=== PATIENT | female | born 1990 | race Caucasian/White ===

== ENCOUNTER → 2022-08-03 | Outpatient (CLI) | payer OTHER ==
--- NOTE | 2022-08-03 13:16 | Diagnostic Imaging Report ---
INDICATION: survey. TECHNIQUE: Multiple Real-time grayscale images were obtained over the gravid uterus. COMPARISON: None FINDINGS: There is a single live fetus in a variable presentation. The heart rate was recorded at 144 BPM. The placenta is posterior and somewhat low lying in position with the tip approximately 2.5 cm from the internal cervical os. The amniotic fluid index is 13.3 cm. The cervical length is 6.1 cm. The kidneys, bladder, and stomach are unremarkable. There is a four-chamber heart. There is a three-vessel cord with normal insertion. The spine is unremarkable. The brain is unremarkable although there were suboptimal views of the cerebellum and cisterna magna. Biometrical measurements are as follows: Biparietal 4.05 cm, age 18 weeks 3 days. Head circumference 14.85 cm, age 18 weeks 0 days. Abdominal circumference 12.03 cm, age 17 weeks 6 days. Femur length 2.63 cm, age 18 weeks 0 days. Sonographic estimate age: 18 weeks 1 days. Sonographic estimated date of delivery: 01/03/2023. Estimated Weight: 214 gm (+/- 31 gm). LMP percentile: <2%. heart rate: 144 beats per minute. number: 1 of 1. IMPRESSION: Single live IUP measuring 18 weeks 1 day gestational age with an estimated date of confinement sonographically of 01/03/2023. This is approximately 2 weeks discordant when compared with the gestational age by LMP. No definite complicating features are identified; however, the brain was somewhat limited in evaluation, particularly the posterior fossa. Dictated by: Dictated on workstation # [id number]
== END ==
LOC: RAD 09:50
PROVIDERS: ATTEND Nurse Practitioner Women's Health
DX: Z34.02 Encounter for supervision of normal first pregnancy, second trimester (principal); Z3A.18 18 weeks gestation of pregnancy
CPT/HCPCS: 76805

== ENCOUNTER → 2022-12-21 | Outpatient (CLI) | payer OTHER ==
[~2022-12-21] VITALS: Ht 157.5 cm; Wt 92.9 kg
[~2022-12-21] MED LIST: CALC500T7 PO; HYDR-3781 PO; PNV-9 PO; PYRI25TA3 PO; SERT-413 PO
== END | disposition home or self-care (01) ==
LOC: PREOP 05:38
PROVIDERS: ATTEND Obstetrics & Gynecology
DX: Z01.818 Encounter for other preprocedural examination (principal)

== ENCOUNTER 2022-12-28 05:40 | Inpatient (IN) | payer OTHER ==
[2022-12-28] VITALS (9 sets, daily range): BP systolic 102–132; BP diastolic 56–80
[~2022-12-28] VITALS: Ht 157.5 cm; Wt 91.8 kg
--- OUTSIDE RECORDS SUMMARY | 2022-12-28 05:43 | XMS REPORT ---
Author Author [facility] ter [facility] ter [facility] Address Unknown Phone Unavailable Care Team Providers Care Manager Furniture Name Role Phone JAMAAL ESTEBAN Unavailable PROBLEMS Type Condition ICD9-CM Code [id number] Code Onset Dates Condition Status W/U Status Risk SNOMED Code Notes Problem Missed period N92.6 confirmed 299274 00 Problem Attention deficit disorder (ADD) without hyperactivity F98.8 confirmed 32275746 Problem Anxiety F41.9 confirmed 56006772 Problem Third trimester Z34.93 confirmed 47850318 Problem Screening for thyroid disorder Z13.29 confirmed 145991003 Problem Insomnia due to medical condition G47.01 confirmed [id number] 9105 Problem Depression with anxiety F41.8 confirmed 858533042 Problem Generalized anxiety disorder F41.1 confirmed 14091461 Problem Episode of heavy vaginal bleeding N93.9 confirmed 316637801 Problem BMI 35.0-35.9,jose c lt Z68.35 confirmed [id number] ALLERGIES No Known Allergies ENCOUNTERS from 1989 to 2022-12-05 Encounter Location Date Provider Diagnosis [facility] [address] [id number] [place] [address] 11 Dec, 2020 JAMAAL ESTEBAN Depression with anxi ety F41.8 IMMUNIZATIONS Vaccine Route Administration Date Status PRIVATE FLU 22-23 (FLULAVAL) AGE 6MO AND UP Unknown Dec 09, 2021 Refused COVID-19 Pfizer (history) Unknown Nov 03, 2020 Ad ministered COVID-19 Pfizer (history) Unknown Oct 08, 2020 Ad ministered SOCIAL HISTORY Sex Assigned At : Social History Observation Description Sex Assigned At Unknown Alcohol Screen (Audit-C) Question Answer Notes Did you have a drink containing alcohol in the p ast year? No Points 0 Interpretation Negative PHQ2 Question Answer Notes In the last 2 weeks, how oft en have you had little interest or pleasure in doing things? Not at all In the last 2 weeks, how oft en have you been feeling down, depressed, or hopeless? Not at all Total PHQ2 Score 0 REASON FOR REFERRAL No Information VITAL SIGNS Height 62 in Dec, Height-cm 157.48 cm Dec, Weight 143 lbs Dec, Weight-kg 64.86 kg Dec, Temperature 96.9 degrees Fahrenheit Dec, Heart Rate 70 bpm Dec, Respiratory Rate 18 bpm Dec, Oximetry 98 % Dec, BMI 26.15 kg/m2 Dec, Blood pressure systolic 116 mmHg Dec, Blood pressure diastolic 78 mmHg Dec, MEDICATIONS Medication SIG (Take, Route, Frequency, Duration) Notes Start Date End Date Status hydrOXYzine Pamoate 25 MG TAKE ONE TO TWO CAPSULES Orally twice daily for 30 days Active Sertraline HCl 50 MG 1 tablet Orally Onc e a day for 30 days Oct, Active Escitalopram Oxalate 20 MG 1 tablet Orally Once a day for 30 days Not-Taking busPIRone HCl 15 MG 1 tablet Orally Twic e a day for 30 days Not-Taking Active Cefdinir 300 MG 1 capsule Orally 2 times a day for 10 days Jan, Not-Taking REASON FOR VISIT Anxiety-would like to see what else there is, states current meds are not helping -[facility] MEDICAL (GENERAL) HISTORY Type Description Date Medical History Anxiety Surgical History Bladder repair, exploratory for spine and pelvis 2013 Surgical History GB 2014 Hospitalization History [facility] 2013 MENTAL STATUS No Information ASSESSMENTS Encounter Date Diagnosis Assessment Notes Treatment Notes Treatment Clinical Notes Dec, Depression with anxiety (ICD-10 - F41.8) Martha was very upset today with all of the changes going on. We are goign to move from bupropion which can be a little stimulating for someone with anxiety to lexapro which is good for both anxiety and depression and does not have the activation that the wellbutrin does. I suspect that some of glenna "ADD" symptoms she is having are attributed to her anxiety. We will also add Remeron to help with sleep at night and increase her appetite a little. Discussed that we can see some weight gain with the remeron, but that would be the first one to take off if we do see that. Right now, goal is to stabilize her mood. SHe is agreeable. She does have therapy arranged. I will plan to see her in 3-4 weeks, sooner if her anxiety worsens or is not relieved by the regimen we prescribed today. Dec, Other 30 minutes spen t in patient's care on date of service. PLAN OF TREATMENT Medication Medication Name Sig Start Date Stop Date Sertraline HCl 50 MG 1 tablet Orally Onc e a day for 30 days Oct, hydrOXYzine Pamoate 25 MG TAKE ONE TO TW O CAPSULES Orally twice daily for 30 days Treatment Notes Assessment Notes Clinical Notes Depression with anxiety Martha was ve ry upset today with all of the changes going on. We are goign to move from bupropion which can be a little stimulating for someone with anxiety to lexapro which is good for both anxiety and depression and does not have the activation that the wellbutrin does. I suspect that some of glenna "ADD" symptoms she is having are attributed to her anxiety. We will also add Remeron to help with sleep at night and increase her appetite a little. Discussed that we can see some weight gain with the remeron, but that would be the first one to take off if we do see that. Right now, goal is to stabilize her mood. SHe is agreeable. She does have therapy arranged. I will plan to see her in 3-4 weeks, sooner if her anxiety worsens or is not relieved by the regimen we prescribed today. Next Appt Details 4 Weeks Reason:axniety/depre ssion Follow Up:4 Weeksaxniety/depression Insurance Providers Payer Name Payer Address Payer Phone Insured Name Patient Relationship to Insured Coverage Start Date Coverage End Date Subscriber Number Group Number [facility] [address] [address] [facility] [id number] Yanna Duff A Self - patient is the insured [id number]
--- OUTSIDE RECORDS SUMMARY | 2022-12-28 05:43 | XMS REPORT ---
Author Author [facility] ter [facility] ter [facility] Address Unknown Phone Unavailable Care Team Providers Care Metrology Manager Name Role Phone MARIA DE JESUS Basurto Unavailable [phone] PROBLEMS Type Condition ICD9-CM Code [id number] Code Onset Dates Condition Status W/U Status Risk SNOMED Code Notes Problem Missed period N92.6 confirmed 179218 00 Problem Screening for thyroid disorder Z13.29 confirmed 843085210 Problem Episode of heavy vaginal bleeding N93.9 confirmed 485404365 Problem BMI 35.0-35.9,jose c lt Z68.35 confirmed 745305585 Problem Attention deficit disorder (ADD) without hyperactivity F98.8 confirmed 78507646 Problem Anxiety F41.9 confirmed 33216837 Problem Depression with anxiety F41.8 confirmed 666788633 Problem Generalized anxiety disorder F41.1 confirmed [id number] ALLERGIES No Known Allergies ENCOUNTERS from 1989 to 2022-08-01 Encounter Location Date Provider Diagnosis [facility] [address] [id number] [place] [address] Aug, MARIA DE JESUS Basurto Low libido R68.82 ; Attention deficit disorder (ADD) without hyperactivity F98.8 and Screening for thyroid disorder Z13.29 IMMUNIZATIONS Vaccine Route Administration Date Status PRIVATE [...] No Information VITAL SIGNS Height 62 in Aug, Weight 157 lbs Aug, Weight-kg 71.21 kg Aug, Temperature 98.0 degrees Fahrenheit Aug, Heart Rate 84 bpm Aug, Respiratory Rate 20 bpm Aug, Oximetry 99 % Aug, BMI 28.71 kg/m2 Aug, Blood pressure systolic 100 mmHg Aug, Blood pressure diastolic 70 mmHg Aug, MEDICATIONS Medication SIG (Take, Route, Frequency, Duration) Notes Start Date End Date Status Escitalopram Oxalate 20 MG 1 tablet Oral ly Once a day for 30 days Active busPIRone HCl 15 MG 1 tablet Orally Twic e a day for 30 days Active hydrOXYzine Pamoate 25 MG TAKE ONE TO TW O CAPSULES BY MOUTH EVERY 6 HOURS NEEDED Orally every 6 hours as needed for 7 days Active Cefdinir 300 MG 1 capsule Orally 2 t imes a day for 10 days Jan, Active REASON FOR VISIT ADD f/u, PT states no concerns. lbualle rt r MEDICAL (GENERAL) HISTORY Type Description Date Medical History Anxiety Surgical History Bladder repair, exploratory for spine and pelvis 2012 Surgical History GB 2014 Hospitalization History [facility] 2012 MENTAL STATUS No Information ASSESSMENTS Encounter Date Diagnosis Assessment Notes Treatment Notes Treatment Clinical Notes Aug, Low libido (ICD-10 - R68.82) Will look into Addyi after labs if appropriate, Decreased Female Libido: Care Instructions material was published Aug, Attention deficit disorder (ADD) without hyperactivity (ICD-10 - F98.8) We discussed the risks, benefits, and alternatives of the medication Will increase to 450mg daily and see how she does. Instructed patient to take medication regularly every day. If at any time you experience any suicidal or homicidal ideation, please seek urgent evaluation with us or at the nearest ER Patient voices understanding and agrees with the plan. All questions answered. Aug, Screening for thyroid disorder (ICD-10 - Z13.29) PLAN OF TREATMENT Medication Medication Name Sig Start Date Stop Date Cefdinir 300 MG 1 capsule Orally 2 times a day for 10 days Jan, Treatment Notes Assessment Notes Clinical Notes Low libido Will look into Addyi after labs if appropriate, Decreased Female Libido: Care Instructions material was published Attention deficit disorder ( ADD) without hyperactivity We discussed the risks, benefits, and alternatives of the medication Will increase to 450mg daily and see how she does. Instructed patient to take medication regularly every day. If at any time you experience any suicidal or homicidal ideation, please seek urgent evaluation with us or at the nearest ER Patient voices understanding and agrees with the plan. All questions answered. Next Appt Details 2 Months Reason:anxiety f/u Follow Up:2 Monthsanxiety f/u Insurance Providers Payer Name Payer Address Payer Phone Insured Name Patient Relationship to Insured Coverage Start Date Coverage End Date Subscriber Number Group Number [facility] [address] [address] [facility] [id number] Yanna Duff A Self - patient is the insured [id number]
--- OUTSIDE RECORDS SUMMARY | 2022-12-28 05:43 | XMS REPORT ---
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.8 confirmed 04284439 Problem Anxiety F41.9 confirmed 19727774 Problem Third trimester Z34.93 confirmed 99808624 Problem Screening for thyroid disorder Z13.29 confirmed 768298468 Problem Insomnia due to medical condition G47.01 confirmed 1765431755 9105 Problem Depression with anxiety F41.8 confirmed 151594061 Problem Generalized anxiety disorder F41.1 confirmed 95073231 Problem Episode of heavy vaginal bleeding N93.9 confirmed 306700983 Problem BMI 35.0-35.9,jose c lt Z68.35 confirmed 133534317 ALLERGIES No Known Allergies ENCOUNTERS from 1989 to 2022-12-04 Encounter Location Date Provider Diagnosis [facility] [place] [address] [id number] [place] [address] 08 Dec, 2020 KE TRIPPTrell Anxiety F41.9 IMMUNIZATIONS Vaccine Route Administration Date Status COVID-19 Pfizer (history) Unknown Oct 08, 2020 Ad ministered COVID-19 Pfizer (history) Unknown Nov 03, 2020 Ad ministered PRIVATE FLU 22-23 (FLULAVAL) AGE 6MO AND UP Unknown Dec 09, 2021 Refused SOCIAL HISTORY Sex Assigned At : Social [...] Score 0 REASON FOR REFERRAL No Information MEDICATIONS Medication SIG (Take, Route, Frequency, Duration) [...] 10 days Jan, Not-Taking REASON FOR VISIT Refill request MEDICAL (GENERAL) HISTORY Type Description Date Medical History Anxiety Surgical History Bladder repair, exploratory for spine and pelvis 2013 Surgical History GB 2014 Hospitalization History [facility] 2013 MENTAL STATUS No Information ASSESSMENTS Encounter Date Diagnosis Assessment Notes Treatment Notes Treatment Clinical Notes Dec, Anxiety (ICD-10 - F41.9) PLAN OF TREATMENT Medication Medication Name Sig Start Date Stop Date Sertraline HCl 50 MG 1 tablet Orally Onc e a day for 30 days Oct, hydrOXYzine Pamoate 25 MG TAKE ONE TO TW O CAPSULES Orally twice daily for 30 days Insurance Providers Payer Name Payer Address Payer Phone Insured Name Patient Relationship to Insured Coverage Start Date Coverage End Date Subscriber Number Group Number [facility] [address] [address] [facility] [id number] Yanna Duff A Self - patient is the insured [id number]
--- OUTSIDE RECORDS SUMMARY | 2022-12-28 05:43 | XMS REPORT ---
Author Author [facility] ter [facility] Address Unknown Phone Unavailable Care Team Providers Care Clay Dry Press Mixer Operator Name Role Phone MARIA DE JESUS Basurto Unavailable PROBLEMS Type Condition ICD9-CM Code [id number] Code Onset Dates Condition Status W/U Status Risk SNOMED Code Notes Problem Missed period N92.6 confirmed 389751 00 Problem Screening for thyroid disorder Z13.29 confirmed 332527611 Problem Episode of heavy vaginal bleeding N93.9 confirmed 235877184 Problem BMI 35.0-35.9,jose c lt Z68.35 confirmed 930510791 Problem Attention deficit disorder (ADD) without hyperactivity F98.8 confirmed 49717873 Problem Anxiety F41.9 confirmed 37093228 Problem Depression with anxiety F41.8 confirmed 011730813 Problem Generalized anxiety disorder F41.1 confirmed 96229074 ALLERGIES No Known Allergies ENCOUNTERS from 1989 to 2022-10-01 Encounter Location Date Provider Diagnosis [facility] [address] [id number] [place] [address] Oct, MARIA DE JESUS Basurto Anxiety F41.9 IMMUNIZATIONS Vaccine Route Administration Date [...] No Information VITAL SIGNS Height 62 in Oct, Weight 157.7 lbs Oct, Weight-kg 71.53 kg Oct, Temperature 97.3 degrees Fahrenheit Oct, Heart Rate 101 bpm Oct, Respiratory Rate 18 bpm Oct, Oximetry 99 % Oct, BMI 28.84 kg/m2 Oct, Blood pressure systolic 128 mmHg Oct, Blood pressure diastolic 74 mmHg Oct, MEDICATIONS Medication SIG (Take, Route, Frequency, Duration) [...] 10 days Jan, Active REASON FOR VISIT Anxiety, Pt states she feels like she needs another mediation or add something to it. Pts she is OCD. No depression just anxiety. lbualle rt r MEDICAL (GENERAL) HISTORY Type Description Date Medical History Anxiety Surgical History Bladder repair, exploratory for spine and pelvis 2012 Surgical History GB 2014 Hospitalization History [facility] 2012 MENTAL STATUS No Information ASSESSMENTS Encounter Date Diagnosis Assessment Notes Treatment Notes Treatment Clinical Notes Oct, Anxiety (ICD-10 - F41.9) She is doing well on the wellbutrin and has seen benefit from the medication. We will trial hydoxyzine to see if this will help her with her anxiety more. Discussed possible side effect of drowsiness with the medication and to know how it effects her before driving. Recommend taking it in the evening at home the first time. If this doesn't help her anxiety then we will try adding buspar and see if this will benefit her anxiety. I do recommend her seeing psych for an evaluation and she is agreeable to this. Says she will call and schedule when she gets her calender. , Anxiety Disorder: Care Instructions material was published Oct, Other hydroxyzine oliva flores was published, Obsessive-Compulsive Disorder: Care Instructions material was published PLAN OF TREATMENT Medication Medication Name Sig Start Date Stop Date Cefdinir 300 MG 1 capsule Orally 2 times a day for 10 days Jan, Treatment Notes Assessment Notes Clinical Notes Anxiety She is doing well on the wellbutrin and has seen benefit from the medication. We will trial hydoxyzine to see if this will help her with her anxiety more. Discussed possible side effect of drowsiness with the medication and to know how it effects her before driving. Recommend taking it in the evening at home the first time. If this doesn't help her anxiety then we will try adding buspar and see if this will benefit her anxiety. I do recommend her seeing psych for an evaluation and she is agreeable to this. Says she will call and schedule when she gets her calender. , Anxiety Disorder: Care Instructions material was published Next Appt Details 4-6 weeks Reason:anxiety f/u Follow Up:4-6 weeksanxiety f/u Insurance Providers Payer Name Payer Address Payer Phone Insured Name Patient Relationship to Insured Coverage Start Date Coverage End Date Subscriber Number Group Number [facility] [address] [address] [facility] [id number] Yanna Duff A Self - patient is the insured [id number]
[2022-12-28] MEDS ORDERED: ceFAZolin INJECTION 2,000 MG in NS (IVPB) 50 ML 50 ML IV ONE (05:45)
[2022-12-28] MEDS ORDERED: CATHETER FLUSH 10 ML SYR IV PRN (06:00)
[2022-12-28] MEDS ORDERED: FAMOTIDINE INJ 20MG/2ML VIAL IV ONE (06:00)
[2022-12-28] MEDS ORDERED: METOCLOPRAMIDE INJ 10 MG/2 ML IV ONE (06:00)
[2022-12-28] MEDS ORDERED: CITRIC ACID/SODIUM CITRATE ORAL SOLN 30 ML PO ONE (06:00)
[2022-12-28 06:25] LABS: HEMOGLOBIN 11.4 g/dL (11.5-16.0); MEAN PLATELET VOLUME 10.2 fL (9.0-12.2)
[2022-12-28 06:27] LABS: BASOPHILS % (AUTO) 0 % (0-10); EOSINOPHILS # (AUTO) 0.2 10^3/uL (0.0-0.3); EOSINOPHILS % (AUTO) 2 % (0-10); HEMATOCRIT 33 % (35-52); LYMPHOCYTES # (AUTO) 1.9 10^3/uL (1.0-4.0); LYMPHOCYTES % (AUTO) 22 % (12-44); MEAN CORPUSCULAR HEMOGLOBIN 29 pg (25-34); MEAN CORPUSCULAR HGB CONC 35 g/dL (32-36); MEAN CORPUSCULAR VOLUME 83 fL (80-99); MONOCYTES # (AUTO) 0.8 10^3/uL (0.0-1.0); MONOCYTES % (AUTO) 10 % (0-12); NEUTROPHILS # (AUTO) 5.4 10^3/uL (1.8-7.8); NEUTROPHILS % (AUTO) 65 % (42-75); PLATELET COUNT 235 10^3/uL (130-400); WHITE BLOOD COUNT 8.3 10^3/uL (4.3-11.0)
[2022-12-28] MEDS: LACTATED RINGERS 1,000 ML 1,000 ML IV PRN ×2 (06:38→07:11)
[2022-12-28] MEDS ORDERED: fentaNYL INJECTION 100 MCG/2 ML VIAL ONE (07:00)
[2022-12-28] MEDS ORDERED: OXYTOCIN DRIP PRE-MIX 1,000 ML IV ONE (07:01)
--- NOTE | 2022-12-28 07:16 | History & Physical-OB ---
OB - Chief Complaint & HPI Date/Time Date of Admission: Date of Admission: Dec 28, 2022 at 05:40 Date seen by a Provider: Dec 28, 2022 Time Seen by a Provider: 07:05 Chief Complaint/History OB-Reason for Admission/Chief: Section Hx : 1 Hx Para: 0 Expected Date of Delivery: Jan 04, 2023 Gestational Age in Weeks: 39 Gestational Age in Days: 0 Other reason for admission: Hx of hip fracture, requested elective due to concerns of reinjury Admission Nurse Assessment Rev: Yes Allergies and Home Medications Allergies Coded Allergies: No Known Drug Allergies (Unverified , 12/21/22) Patient Home Medication List Home Medication List Reviewed: Yes Calcium Carbonate (Tums) 200 Mg Calcium (500 Mg) Tab.chew, 200 MG PO, (Reported) Entered as Reported by: Ella Tse on 12/21/221031 Last Action: Last Taken Edited Hydroxyzine Pamoate (Hydroxyzine Pamoate) 25 Mg Capsule, 25 MG PO, (Reported) Entered as Reported by: Ella Tse on 12/21/221031 Last Action: Last Taken Edited Pnv 119/Iron Fum/Folic Acid ( 19 Tablet) 29 Mg Iron-1 Mg Tablet, 1 EACH PO, (Reported) Entered as Reported by: Ella Tse on 12/21/221031 Last Action: Last Taken Edited Pyridoxine HCl (Vitamin B-6) 25 Mg Tablet, 25 MG PO, (Reported) Entered as Reported by: Ella Tse on 12/21/221031 Last Action: Last Taken Edited Sertraline HCl (Sertraline HCl) 50 Mg Tablet, 50 MG PO, (Reported) Entered as Reported by: Ella Tse on 12/21/221031 Last Action: Last Taken Edited OB - History Hx of Present Care: Yes Ultrasounds: Normal mid trimester US Obstetrical Complications: None Medical Complications: None Patient Past Medical History nc Immunizations Influenza Vaccine Up-to-Date: No; Not Current OB - Admission Exam Physical Exam Vitals: Vital Signs 12/28/22 06:30 Temp 36.3 Pulse 95 Resp 20 Pulse Ox 100 O2 Delivery Room Air HEENT: NCAT Heart: Rhythm Normal Lungs: Clear Abdomen: Gravid Heart Rate: 130's Accelerations: Accelerations Present Decelerations: No Decelerations Short Term Variability: Present Half-Way Variability: Average (6-25) Contractions on Admission: >10 Minutes Apart Intensity: Mild Labs Laboratory Tests Test 12/28/22 06:10 Range/Units White Blood Count 8.3 4.3-11.0 10^3/uL Red Blood Count 3.95 3.80-5.11 10^6/uL Hemoglobin 11.4 L 11.5-16.0 g/dL Hematocrit 33 L 35-52 % Mean Corpuscular Volume 83 80-99 fL Mean Corpuscular Hemoglobin 29 25-34 pg Mean Corpuscular Hemoglobin Concent 35 32-36 g/dL Red Cell Distribution Width 13.5 10.0-14.5 % Platelet Count 235 130-400 10^3/uL Mean Platelet Volume 10.2 9.0-12.2 fL Immature Granulocyte % (Auto) 1 % Neutrophils (%) (Auto) 65 42-75 % Lymphocytes (%) (Auto) 22 12-44 % Monocytes (%) (Auto) 10 0-12 % Eosinophils (%) (Auto) 2 0-10 % Basophils (%) (Auto) 0 0-10 % Neutrophils # (Auto) 5.4 1.8-7.8 10^3/uL Lymphocytes # (Auto) 1.9 1.0-4.0 10^3/uL Monocytes # (Auto) 0.8 0.0-1.0 10^3/uL Eosinophils # (Auto) 0.2 0.0-0.3 10^3/uL Basophils # (Auto) 0.0 0.0-0.1 10^3/uL Immature Granulocyte # (Auto) 0.1 0.0-0.1 10^3/uL Percent Immature Platelet Fraction 4.7 0.0-7.6 % OB - Assessment/Plan/Diagnosis Assessment Assessment: section Admission Dx 32 yo @ 39 weeks Hx of prior pelvic fracture Primary Admission Status: Inpatient Order (span 2 midnights) Reason for Inpatient Admission: 39 week Plan Plan: Section ADELAIDE NOEL DO Dec 28, 2022 07:16
[2022-12-28] MEDS ORDERED: BUPIVACAINE 0.5% 30 ML VIAL ONE (07:17)
--- NOTE | 2022-12-28 07:18 | Discharge Inst-Women's Service ---
Discharge Inst-Women's Serv Depart Medication/Instructions New, Converted or Re-Newed RX: Transmitted to Pharmacy Final Diagnosis POD 2 PLTCS Problems Reviewed?: Yes Consults/Follow Up Additional Follow Up: Yes Orders/Referrals Dr. Barboza in 7-10 days and in 6 weeks Activity Activity: Activity as Tolerated Driving Instructions: No Driving for 1 Week NO SMOKING: NO SMOKING Nothing Inside Vagina: No Douching, No Sherman, No Tampons Diet Discharge Diet: No Restrictions Symptoms to Report to : Bleeding Excessive, Pain Increased, Fever Over 101 Degrees F, Vaginal Bleeding Increase, Questions/Concerns For Any Problems or Questions: Contact Your Physician Skin/Wound Care Infection Signs and Symptoms: Increased Redness, Foul Odor of Wound, Increased Drainage, Skin Itchy or Has a Rash, Increased Swelling, Temperature Above 101 F Operative Area Clean and Dry: Keep Incision Clean/Dry Stitches/Dania/Dermabond: Dermabond, Care of Stitches Bathing Instructions: ADELAIDE Eddy DO Dec 28, 2022 07:18
[2022-12-28] MEDS ORDERED: ACHD5005 PO (07:19)
[2022-12-28] MEDS ORDERED: DOCU100C37 PO (07:19)
[2022-12-28] MEDS ORDERED: IBUP-844 PO (07:19)
[2022-12-28] MEDS ORDERED: MEASLES, MUMPS, RUBELLA VACCINE (MMR) SC SCH (07:30)
[2022-12-28] MEDS ORDERED: NALOXONE 0.4 MG/ML 1 ML VIAL IV PRN (07:30)
[2022-12-28] MEDS ORDERED: Tetanus/Diphtheria/Pertussis (Acell) ADULT Vaccine 0.5 ML IM SCH (07:30)
[2022-12-28] MEDS ORDERED: ONDANSETRON INJECTION 4 MG/2 ML (SDV) IVP PRN (07:30)
[2022-12-28] MEDS ORDERED: OXYTOCIN DRIP PRE-MIX 500 ML IV SCH (07:30)
[2022-12-28] MEDS ORDERED: PHENYLEPHRINE 100 MCG/ML 10 ML (ANESTHESIA) SYR ONE (07:41)
[2022-12-28] MEDS: KETOROLAC INJ 30 MG/ML VIAL IV SCH ×3 (08:48→21:18)
[2022-12-28] MEDS: DOCUSATE SODIUM 100 MG CAPSULE PO SCH ×2 (09:17→21:16)
[2022-12-28] MEDS ORDERED: CATHETER FLUSH 10 ML SYR IV SCH (14:00)
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
[2022-12-28] MEDS: HYDROcodone/ACETAMINOPHEN 5 MG/325 MG TABLET PO PRN ×2 (15:43→21:16)
[2022-12-29 00:45] VITALS: BP 105/70
[2022-12-29] MEDS: KETOROLAC INJ 30 MG/ML VIAL IV SCH (03:08)
[2022-12-29] MEDS: HYDROcodone/ACETAMINOPHEN 5 MG/325 MG TABLET PO PRN ×3 (03:08→18:17)
[2022-12-29 06:13] LABS: BASOPHILS # (AUTO) 0.1 10^3/uL (0.0-0.1); BASOPHILS % (AUTO) 1 % (0-10); EOSINOPHILS # (AUTO) 0.1 10^3/uL (0.0-0.3); EOSINOPHILS % (AUTO) 1 % (0-10); HEMATOCRIT 30 % (35-52); HEMOGLOBIN 10.2 g/dL (11.5-16.0); LYMPHOCYTES # (AUTO) 1.5 10^3/uL (1.0-4.0); LYMPHOCYTES % (AUTO) 14 % (12-44); MEAN CORPUSCULAR HEMOGLOBIN 29 pg (25-34); MEAN CORPUSCULAR HGB CONC 34 g/dL (32-36); MEAN CORPUSCULAR VOLUME 85 fL (80-99); MEAN PLATELET VOLUME 10.2 fL (9.0-12.2); MONOCYTES # (AUTO) 0.8 10^3/uL (0.0-1.0); MONOCYTES % (AUTO) 8 % (0-12); NEUTROPHILS # (AUTO) 8.6 10^3/uL (1.8-7.8); NEUTROPHILS % (AUTO) 77 % (42-75); PLATELET COUNT 221 10^3/uL (130-400); WHITE BLOOD COUNT 11.2 10^3/uL (4.3-11.0)
[2022-12-29 06:25] VITALS: BP 114/75
--- NOTE | 2022-12-29 07:57 | Postpartum Progress Note ---
Note Note Day # 1 Subjective: Patient is without complaints. Ambulating, voiding. Tolerating a regular diet without nausea or vomiting. Normal lochia. Pain is well controlled with oral pain medications. Objective: Physical Exam: General - Alert and oriented, no apparent distress Abdomen - Soft, appropriately tender to palpation, non-distended, fundus firm at umbilicus Extremities - no edema, negative Eleno's bilaterally Incision- c/d/i Assessment: POD 1 PLTCS Acute blood loss anemia Plan: Routine care. Encourage breast feeding. Encourage ambulation. Ferrous sulfate supplementation. Plan for discharge tomorrow Vitals - Labs Vital Signs - I&O Vital Signs Date Time Temp Pulse Resp B/P (MAP) Pulse Ox O2 Delivery O2 Flow Rate FiO2 12/29/22 06:25 36.1 86 18 114/75 (88) 98 Room Air 12/29/22 00:45 36.3 88 18 105/70 (82) 95 Room Air 12/28/22 21:24 36.8 93 18 108/65 (79) 94 Room Air 12/28/22 16:30 36.9 101 18 111/57 (75) 98 Room Air 12/28/22 13:30 36.4 91 18 105/74 (84) 100 Room Air 12/28/22 09:25 36.4 110/72 (85) 99 Room Air 0 12/28/22 09:25 Room Air 12/28/22 09:15 36.4 74 20 108/75 (86) 99 Room Air 12/28/22 09:05 36.4 102/63 (76) 99 Room Air 0 12/28/22 09:05 Room Air 12/28/22 08:50 Room Air 12/28/22 08:50 36.5 105/56 (72) 96 Room Air 0 12/28/22 08:37 Room Air 12/28/22 08:37 36.6 105/63 (77) 97 Room Air 0 I & O 12/29/22 07:00 Intake Total 5040 ml Output Total 1600 ml Balance 3440 ml Labs Laboratory Tests 12/29/22 05:30: White Blood Count 11.2H, Red Blood Count 3.55L, Hemoglobin 10.2L, Hematocrit 30L , Mean Corpuscular Volume 85, Mean Corpuscular Hemoglobin 29, Mean Corpuscular Hemoglobin Concent 34, Red Cell Distribution Width 13.7, Platelet Count 221, Mean Platelet Volume 10.2, Immature Granulocyte % (Auto) 1, Neutrophils (%) (Auto) 77H, Lymphocytes (%) (Auto) 14, Monocytes (%) (Auto) 8, Eosinophils (%) (Auto) 1, Basophils (%) (Auto) 1, Neutrophils # (Auto) 8.6H, Lymphocytes # (Auto) 1.5, Monocytes # (Auto) 0.8, Eosinophils # (Auto) 0.1, Basophils # (Auto) 0.1, Immature Granulocyte # (Auto) 0.1 Microbiology 12/28/22 MRSA Screen - Final, Complete MRSA not isolated ADELAIDE NOEL DO Dec 29, 2022 07:57
[2022-12-29] MEDS: DOCUSATE SODIUM 100 MG CAPSULE PO SCH ×2 (08:48→21:30)
[2022-12-29] MEDS: IBUPROFEN 600 MG TABLET PO SCH ×3 (08:48→21:30)
[2022-12-29 08:50] VITALS: BP 114/72
[2022-12-29 14:53] VITALS: BP 103/75
[2022-12-29 21:30] VITALS: BP 109/66
[2022-12-30] MEDS: HYDROcodone/ACETAMINOPHEN 5 MG/325 MG TABLET PO PRN ×2 (00:20→06:12)
[2022-12-30 03:10] VITALS: BP 105/68
[2022-12-30] MEDS: IBUPROFEN 600 MG TABLET PO SCH (03:12)
--- NOTE | 2022-12-30 08:04 | Anesthesia-Regional Post-Op ---
Regional Patient Condition Mental Status: Alert, Oriented x3 Circulation: Same as Pre-Op Headache: Absent Sensation: Full Recovery Motor Block: Absent Post Op Complications Complications None Follow Up Care/Instructions Patient Instructions None needed. Anesthesia/Patient Condition Patient is doing well, no complaints, stable vital signs, no apparent adverse anesthesia problems. No complications reported per nursing. ROSEMARIE LEON DO Dec 30, 2022 08:04
--- NOTE | 2022-12-30 08:29 | Postpartum Progress Note ---
Note Note Day # 2 Subjective: Patient is without complaints. Ambulating, voiding. Tolerating a regular diet without nausea or vomiting. Normal lochia. Pain is well controlled with oral pain medications. Objective: Physical Exam: General - Alert and oriented, no apparent distress Abdomen - Soft, appropriately tender to palpation, non-distended, fundus firm at umbilicus Extremities - no edema, negative Eleno's bilaterally Incision- c/d/i Assessment: POD 2 PLTCS Acute blood loss anemia Plan: Routine care. Encourage breast feeding. Encourage ambulation. Ferrous sulfate supplementation. Plan for discharge today Vitals - Labs Vital Signs - I&O Vital Signs Date Time Temp Pulse Resp B/P (MAP) Pulse Ox O2 Delivery O2 Flow Rate FiO2 12/30/22 03:10 36.2 82 18 105/68 (80) 98 12/29/22 21:30 35.8 80 18 109/66 (80) 98 Room Air 12/29/22 14:53 36.4 101 18 103/75 (84) 94 Room Air 12/29/22 08:50 36.3 81 18 114/72 (86) 99 Room Air Labs Microbiology 12/28/22 MRSA Screen - Final, Complete MRSA not isolated ADELAIDE NOEL DO Dec 30, 2022 08:29
[2022-12-30 08:48] VITALS: BP 103/65
[2022-12-30] MEDS: DOCUSATE SODIUM 100 MG CAPSULE PO SCH (08:48)
== END 2022-12-30 13:20 | disposition home or self-care (01) | DRG 787 ==
LOC: LDRP 05:40
PROVIDERS: ADMIT Obstetrics & Gynecology; ATTEND Obstetrics & Gynecology
PROC: 10D00Z1 Extraction of Products of Conception, Low, Open Approach (ICD-10-PCS; principal; 2022-12-28 07:30)
DX: O69.81X0 Labor and delivery complicated by cord around neck, without compression, not applicable or unspecified (principal); D62 Acute posthemorrhagic anemia; Z3A.39 39 weeks gestation of pregnancy; Z37.0 Single live birth; O90.81 Anemia of the puerperium; Z87.81 Personal history of (healed) traumatic fracture
CPT/HCPCS: 36415; 85025; 86850; 86900; 86901; 87081; 94664